=== PATIENT | female | born 1940 | race Caucasian/White ===

== ENCOUNTER 2017-01-18 10:13 | Day surgery (SDC) | payer MEDICARE ==
[~2017-01-18 10:13] MED LIST: AMOX500T PO; FLON0.053; LATA.005%O OU; LEVO.05 PO; NEXI20CA PO; PRIL20TA2 PO; ZYRT10TA12 PO
[2017-01-18 10:51] VITALS: BP 164/70; PULSE 66; RESP 20; TEMP 97.6; O2SAT 100
[2017-01-18] MEDS ORDERED: ERGO1CAP10 PO (10:59)
[2017-01-18] MEDS ORDERED: LEVA500T PO (10:59)
[2017-01-18] MEDS ORDERED: CLAR10CA3 PO (10:59)
[2017-01-18] MEDS ORDERED: ESOM1CAP16 PO (10:59)
[2017-01-18] MEDS ORDERED: LEVO.075 PO (10:59)
[2017-01-18] MEDS ORDERED: ZANT300T PO (10:59)
[2017-01-18] MEDS ORDERED: PRED2.5T PO (10:59)
[2017-01-18] MEDS ORDERED: HYDR-3516 PO (10:59)
[2017-01-18] MEDS ORDERED: FENO145T2 PO (10:59)
[2017-01-18] MEDS ORDERED: ESTR1 PO (10:59)
[2017-01-18] MEDS ORDERED: LATA.005%O EACH EYE (10:59)
[2017-01-18] MEDS ORDERED: NEXI20CA PO (10:59)
[2017-01-18] MEDS ORDERED: DORZ2SOL15 EACH EYE (10:59)
[2017-01-18] MEDS ORDERED: VANCOMYCIN 1,500 MG/NS 500 ML IV ONE ×2 (12:00)
--- NOTE | 2017-01-18 12:51 | RADRPT ---
EXAM DATE/TIME: 01/18/2017 12:15 [place] COMPARISON: No previous studies available for comparison. INDICATIONS : Patient with history of osteomyelitis in need of access for medication administration. MEDICAL HISTORY : HTN, HLD, Kidney stones SURGICAL HISTORY : Colon resection, Tonsillectomy, Cholecystectomy, Appendectomy ENCOUNTER: Initial ACUITY: 7-11 months PAIN SCORE: 0/10 FLUORO TIME: 0.5 minutes IMAGE SERIES: 1 ACCESS: Right basilic vein DEVICE(S): 1.) 4 Chinese single lumen 35 cm Xcela Power PICC PROCEDURE : 1. Ultrasound guidance for venous catheterization. 2. Fluoroscopic guidance. 3. Ultrasound & fluoroscopic guided central venous Power PICC line placement. The risks, benefits and alternatives to the procedure were explained and verbal and written consent w as obtained. The site was prepped in sterile fashion. Full sterile technique was used, including ca p, mask, sterile gloves and gown and a large sterile sheet. Hand hygiene and 2% chlorhexidine prep w as utilized per protocol for cutaneous antisepsis with appropriate dry time for site. The skin and s ubcutaneous tissues were infiltrated with local anesthetic solution. Under direct ultrasound guidance, a suitable vein was accessed and a measuring guidewire was introduc ed and positioned in the central venous system. The ultrasound images depicting access guidance were saved and stored to PACS for permanent record. A Power Injectable PICC line was cut to prescribed length and introduced, positioned with tip at the cavoatrial junction level. The line was flushed and secured per protocol. CONCLUSION: 1. Uncomplicated central venous Power PICC line placement. 2. The PICC line can be used immediately. Wero Boyce MD on January 18, 2017 at 12:48 Board Certified Radiologist. This report was verified electronically.
--- NOTE | 2017-01-18 15:49 | PD.RAD ---
Post Procedure Progress Note Pre Procedure Diagnosis: (1) Osteomyelitis of mandible Post Procedure Diagnosis: (1) Osteomyelitis of mandible Procedure Date: Jan 18, 2017 Supervising Radiologist: Wero Boyce Proceduralist/Assist: Jackie Trujillo RT(R), RT Stephani(R)() Anesthesia: Local Plan of Activity Patient to Unit: ROPU Patient Condition: Good See PACS Report for procedural detail/treatment PICC Device Right PICC line placement single lumen [place]: 4 Catheter: Power PICC PICC line can be used immediately Wero Boyce MD Jan 18, 2017 15:49
[2017-01-18] MEDS ORDERED: SODIUM CHLORIDE 0.9% FLUSH 10 ML FLUSH IVF PRN ×2 (16:00)
[2017-01-19] MEDS ORDERED: SODIUM CHLORIDE 0.9% FLUSH 10 ML FLUSH IVF SCH (09:00)
== END 2017-01-18 14:35 | disposition home or self-care (01) ==
LOC: HROP 10:13 → HRIP 10:16 → HROP 14:35
PROVIDERS: ATTEND Specialist
DX: Z45.2 Encounter for adjustment and management of vascular access device (principal); M86.9 Osteomyelitis, unspecified; M27.2 Inflammatory conditions of jaws; I10 Essential (primary) hypertension; E78.5 Hyperlipidemia, unspecified; Z87.442 Personal history of urinary calculi
CPT/HCPCS: 36569; 76937; 77001; 96365; 96366; C1751; J1642; J3370; J7040